=== PATIENT | male | born 2000 | race Hispanic/Latino ===

== ENCOUNTER 2022-03-19 15:12 | Emergency (ER) | payer SELFPAY ==
[2022-03-19] MEDS ORDERED: diphenhydrAMINE 50 MG/ML VIAL ONE (15:16)
[2022-03-19] MEDS ORDERED: methylPREDNISolone Sod Succ/PF 125 MG/2 ML VIAL ONE (15:16)
[2022-03-19] MEDS ORDERED: Famotidine/PF 20 mg/2ml Vial ONE (15:16)
== END 2022-03-19 17:42 | disposition home or self-care (01) ==
LOC: NAV ERS 15:12
DX: T63.441A Toxic effect of venom of bees, accidental (unintentional), initial encounter (principal); F17.210 Nicotine dependence, cigarettes, uncomplicated
CPT/HCPCS: 96374; 96375; J1200; J2930; S0028